=== PATIENT | female | born 1960 | race African-American/Black ===

== ENCOUNTER 2025-05-29 12:22 | Emergency (ER) | payer MEDICAID ==
[~2025-05-29] VITALS: Ht 172.7 cm; Wt 62.8 kg
[~2025-05-29 12:22] MED LIST: ALBU90AE INH; AMIO100T4 PO; ASPI-1160 PO; ATOR-2 PO; ATOR10TA PO; CHOL2000 PO; EMPA25TA PO; FOLI0.4T6 MT; FURO20TA4 PO; GLIM1TAB55 MT; ISOS30TA12 MT; LATA2.5D7 EACHEYE; LEVE500T19 PO; METO25TA6 PO; POLY17PO43 MT; RIVA20TA PO; SACUBITRIL-VALSARTAN
[2025-05-29 12:24] VITALS: TEMP 98.4; O2SAT 100
[2025-05-29] MEDS: ADENOSINE 3 MG/ML 2ML VIAL IV ONE (12:52)
[2025-05-29 13:26] LABS: CREATININE 1.3 mg/dL (0.6-1.0); UREA NITROGEN BLOOD 17 mg/dL (9-23)
[2025-05-29 13:29] LABS: BASOPHILS % 1.0 % (0.0-2.0); EOSINOPHILS % 2.6 % (0.0-5.0); HEMATOCRIT. 35.7 % (36.0-48.0); HEMOGLOBIN. 11.5 g/dL (12.0-16.0); LYMPHOCYTES % 38.3 % (20.0-50.0); MEAN PLATELET VOLUME 8.0 fl (7.4-10.4); MONOCYTES % 7.0 % (2.0-8.0); NEUTROPHILS % 51.1 % (40.0-76.0); PLATELET 294 x1000/uL (130-400); RED BLOOD CELL COUNT 3.59 mill/uL (4.2-5.4); RED CELL DISTRIBUTION WIDTH 13.1 % (11.6-14.6)
[2025-05-29 14:13] VITALS: BP 94/62; PULSE 89; RESP 17; O2SAT 98
== END 2025-05-29 14:24 | disposition home or self-care (01) ==
LOC: ER 12:22
DX: I47.10 Supraventricular tachycardia, unspecified (principal); I48.91 Unspecified atrial fibrillation; I25.2 Old myocardial infarction; I11.0 Hypertensive heart disease with heart failure; Z86.79 Personal history of other diseases of the circulatory system; Z86.73 Personal history of transient ischemic attack (TIA), and cerebral infarction without residual deficits; Z79.899 Other long term (current) drug therapy; Z79.84 Long term (current) use of oral hypoglycemic drugs; Z79.01 Long term (current) use of anticoagulants
CPT/HCPCS: 99285; 96374; 71045; 80048; 83880; 83735; 85025; 36415; 93005; J0153

== ENCOUNTER 2025-06-17 13:47 | Emergency (ER) | payer MEDICAID ==
[~2025-06-17] VITALS: Ht 165.1 cm; Wt 77.0 kg
[2025-06-17 13:51] VITALS: O2SAT 99
[2025-06-17 15:06] LABS: BASOPHILS % 1.0 % (0.0-2.0); EOSINOPHILS % 2.2 % (0.0-5.0); HEMATOCRIT. 38.3 % (36.0-48.0); HEMOGLOBIN. 12.2 g/dL (12.0-16.0); LYMPHOCYTES % 30.7 % (20.0-50.0); MEAN PLATELET VOLUME 7.9 fl (7.4-10.4); MONOCYTES % 9.3 % (2.0-8.0); NEUTROPHILS % 56.8 % (40.0-76.0); PLATELET 288 x1000/uL (130-400); RED BLOOD CELL COUNT 3.78 mill/uL (4.2-5.4); RED CELL DISTRIBUTION WIDTH 13.1 % (11.6-14.6)
[2025-06-17 15:21] LABS: CREATININE 1.2 mg/dL (0.6-1.0)
[2025-06-17 15:22] LABS: PROTEIN TOTAL 6.7 g/dL (6.0-8.3); TROPONIN I HIGH SENSITIVITY 16 ng/L (3.0-34); UREA NITROGEN BLOOD 8 mg/dL (9-23)
[2025-06-17 15:23] LABS: ASPARTATE AMINOTRANSFERASE 22 IU/L (<34)
[2025-06-17 15:24] LABS: BILIRUBIN TOTAL 0.4 mg/dL (0.1-1.0)
[2025-06-17 17:21] LABS: TROPONIN I HIGH SENSITIVITY 19 ng/L (3.0-34)
[2025-06-17 18:11] VITALS: BP 105/68; PULSE 90; RESP 17; TEMP 36.7; O2SAT 100
== END 2025-06-17 18:12 | disposition home or self-care (01) ==
LOC: ER 13:47
DX: I47.10 Supraventricular tachycardia, unspecified (principal); I25.2 Old myocardial infarction; I11.0 Hypertensive heart disease with heart failure; I48.91 Unspecified atrial fibrillation; Z86.73 Personal history of transient ischemic attack (TIA), and cerebral infarction without residual deficits; Z79.899 Other long term (current) drug therapy; Z79.84 Long term (current) use of oral hypoglycemic drugs; Z79.01 Long term (current) use of anticoagulants
CPT/HCPCS: 36415; 80053; 84484; 85025; 93005; 99284